=== PATIENT | male | born 1955 | race Native Hawaiian/Other Pacific Islander ===

== ENCOUNTER 2019-07-04 19:02 | Emergency (ER) | payer OTHER ==
[~2019-07-04] VITALS: Ht 188 cm; Wt 102.2 kg
[2019-07-04 19:02] VITALS: BP 110/60; TEMP 98
[2019-07-04 19:30] LABS: PLATELET COUNT 199 K/uL (142-355)
[2019-07-04 19:48] LABS: POTASSIUM 3.7 mmol/L (3.6-5.2)
[2019-07-04] MEDS ORDERED: ASPIRIN 81 LOW81 MG PO (22:21)
[2019-07-04] MEDS ORDERED: METAMUCIL28 % PO (22:22)
[2019-07-04] MEDS ORDERED: PAROXETINE10 MG PO (22:23)
[2019-07-04] MEDS ORDERED: MEMA5TAB PO (22:24)
[2019-07-04] MEDS ORDERED: LIPITOR10 MG PO (22:25)
[2019-07-04] MEDS ORDERED: QUET100T2 PO ×2 (22:25→22:27)
== END 2019-07-04 20:29 | disposition other institution (70) ==
LOC: ED 19:02
PROVIDERS: Emergency Medicine
DX: F28 Other psychotic disorder not due to a substance or known physiological condition (principal); N39.0 Urinary tract infection, site not specified; Z04.6 Encounter for general psychiatric examination, requested by authority
CPT/HCPCS: 80053; 81000; 85027; 87088; 93005; 99283